=== PATIENT | female | born 1965 | race African-American/Black ===

== ENCOUNTER 2017-07-01 16:17 | Emergency (ER) | payer SELFPAY ==
[~2017-07-01] VITALS: Ht 175.3 cm; Wt 73.0 kg
[2017-07-01] MEDS ORDERED: ONDANSETRON 4MG ODT PO ONE (18:30)
[2017-07-01] MEDS ORDERED: KETOROLAC 60MG/2ML VIAL IM ONE (18:30)
[2017-07-01] MEDS ORDERED: FAMOTIDINE 20MG TABLET PO ONE (18:30)
[2017-07-01 20:00] VITALS: BP 159/91
== END 2017-07-01 20:00 | disposition home or self-care (01) ==
LOC: ER 16:17
DX: G43.909 Migraine, unspecified, not intractable, without status migrainosus (principal)
CPT/HCPCS: 81025; 96372; 99283; J1885; Q0162; Z7610